=== PATIENT | female | born 1990 | race Caucasian/White ===

== ENCOUNTER → 2018-09-03 | Emergency (ER) | payer OTHER ==
[~2018-09-03] MED LIST: DICYCLOMINE HCL 10 MG CAP ONE; FAMOTIDINE 20 MG/2 ML VIAL IV ONE; NA CHLORIDE 0.9% 1,000 ML ONE; ONDANSETRON 4 MG/2 ML VIAL ONE
[2018-09-03 14:11] LABS: Absolute Lymphocytes (CBC) 1.4 K/uL (0.7-4.9); Absolute Monocytes 0.3 K/uL (0.1-1.3); Absolute Neutrophil 3.8 K/uL (1.8-8.0); Basophils % 0.5 % (0-1.3); Eosinophils % 1.6 % (0-4.4); Hematocrit 42.1 % (36.0-45.0); Lymphocytes % 25.4 % (15.3-44.8); MPV 9.5 fL (7.6-11.3); Monocytes % 5.7 % (3.3-12.3); RBC Red Blood Cell Count 4.73 M/uL (3.86-4.86)
[2018-09-03 14:35] LABS: ALT/SGPT 16 U/L (12-78); AST/SGOT 12 U/L (15-37); Albumin 4.2 g/dL (3.4-5.0); Alkaline Phosphatase 86 U/L (45-117); BUN Blood Urea Nitrogen 7 mg/dL (7-18); Bicarbonate 22 mmol/L (21-32); Bilirubin Direct 0.1 mg/dL (0-0.2); Bilirubin Total 0.5 mg/dL (0.2-1.0); Glucose Level 100 mg/dL (74-106); Lipase 98 U/L (73-393); Potassium 3.5 mmol/L (3.5-5.1); Protein, Total 8.6 g/dL (6.4-8.2); Sodium Level 141 mmol/L (136-145)
--- NOTE | 2018-09-03 14:46 | EDPHYS ---
Physician Documentation [facility] Name: Mechelle Carmichael Age: 28 yrs Sex: Female : 1990 Arrival Date: 09/03/2018 Time: 12:37 Bed 30 Private MD: None, None ED Physician Juan Villalta HPI: 09/03 14:25 This 28 yrs old Female presents to ER via Ambulatory with complaints of kb Abdominal Pain. 14:25 The patient presents with abdominal pain in the epigastric area. Onset: The kb symptoms/episode began/occurred last night, and became worse this morning. The symptoms do not radiate. Associated signs and symptoms: Pertinent positives: nausea and vomiting, Pertinent negatives: anorexia, blood in stools, chest pain, constipation, diarrhea, dysuria, fever, headache, hematuria, palpitations, shortness of breath, vaginal discharge, vomiting blood. The symptoms are described as burning, pressure. Modifying factors: The symptoms are alleviated by nothing, the symptoms are aggravated by nothing. Severity of pain: At its worst the pain was moderate in the emergency department the pain is unchanged. The patient has not experienced similar symptoms in the past. The patient has not recently seen a physician. 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 - Social history:: Smoking status: unknown. - Ebola Screening: : No symptoms or risks identified at this time. ROS: 14:25 Constitutional: Negative for fever, chills, and weight loss, Cardiovascular: Negative kb for chest pain, palpitations, and edema, Respiratory: Negative for shortness of breath, cough, wheezing, and pleuritic chest pain, Back: Negative for injury and pain, : Negative for injury, bleeding, discharge, and swelling, MS/Extremity: Negative for injury and deformity, Skin: Negative for injury, rash, and discoloration, Neuro: Negative for headache, weakness, numbness, tingling, and seizure. 14:25 Abdomen/GI: Positive for abdominal pain, nausea and vomiting, Negative for diarrhea, constipation, abdominal cramps, abdominal distension, anorexia. Exam: 14:25 Constitutional: This is a well developed, well nourished patient who is awake, alert, kb and in no acute distress. Head/Face: Normocephalic, atraumatic. Chest/axilla: Normal chest wall appearance and motion. Nontender with no deformity. No lesions are appreciated. Cardiovascular: Regular rate and rhythm with a normal S1 and S2. No gallops, murmurs, or rubs. Normal PMI, no JVD. No pulse deficits. Respiratory: Lungs have equal breath sounds bilaterally, clear to auscultation and percussion. No rales, rhonchi or wheezes noted. No increased work of breathing, no retractions or nasal flaring. Back: No spinal tenderness. No costovertebral tenderness. Full range of motion. Skin: Warm, dry with normal turgor. Normal color with no rashes, no lesions, and no evidence of cellulitis. MS/ Extremity: Pulses equal, no cyanosis. Neurovascular intact. Full, normal range of motion. Neuro: Awake and alert, GCS 15, oriented to person, place, time, and situation. Cranial nerves II-XII grossly intact. Motor strength 5/5 in all extremities. Sensory grossly intact. Cerebellar exam normal. Normal gait. 14:25 Abdomen/GI: Inspection: abdomen appears normal, Bowel sounds: normal, in all quadrants, Palpation: soft, in all quadrants, mild abdominal tenderness, in the epigastric area. Vital Signs: 12:51 BP 127 / 92; Pulse 117; Resp 18; Temp 98.3; Pulse Ox 98% ; Weight 68.04 kg; Height 5 sv ft. 2 in. (157.48 cm); Pain 4/10; 13:49 Pulse 98; Resp 20; Pulse Ox 100% ; tl3 15:26 BP 113 / 76; Pulse 76; Resp 18; Pulse Ox 100% on R/A; tl3 12:51 Body Mass Index 27.44 (68.04 kg, 157.48 cm) sv MDM: 13:06 Patient medically screened. kb 14:25 Data reviewed: vital signs, nurses notes. Data interpreted: Pulse oximetry: on room air kb is 100 %. Interpretation: normal. 14:44 Counseling: I had a detailed discussion with the patient and/or guardian regarding: the kb historical points, exam findings, and any diagnostic results supporting the discharge/admit diagnosis, lab results, the need for outpatient follow up, a family practitioner, a activated sludge attendant, to return to the emergency department if symptoms worsen or persist or if there are any questions or concerns that arise at home. 09/03 13:18 Order name: Basic Metabolic Panel; Complete Time: 14:36 kb 09/03 13:18 Order name: CBC with Diff; Complete Time: 14:34 kb 09/03 13:18 Order name: Hepatic Function; Complete Time: 14:36 kb 09/03 13:18 Order name: Lipase; Complete Time: 14:36 kb 09/03 13:30 Order name: Urine --Ancillary (enter results) bd 09/03 13:18 Order name: IV Saline Lock; Complete Time: 13:53 kb 09/03 13:18 Order name: Labs collected and sent; Complete Time: 13:53 kb Administered Medications: 13:51 Drug: Zofran 4 mg Route: IVP; Infused Over: 2 mins; Site: right antecubital; tl3 15:27 Follow up: Response: No adverse reaction; Marked relief of symptoms tl3 13:51 Drug: Bentyl 20 mg Route: PO; tl3 15:27 Follow up: Response: No adverse reaction tl3 13:52 Drug: NS 0.9% 1000 ml Route: IV; Rate: 1000 ml; Site: right antecubital; Delivery: tl3 Primary tubing; 15:27 Follow up: IV Status: Completed infusion; IV Intake: 1000ml tl3 13:52 Drug: Pepcid 20 mg Route: IVP; Infused Over: 1 mins; Site: right antecubital; tl3 15:27 Follow up: Response: No adverse reaction; Marked relief of symptoms tl3 Disposition: 09/04 07:01 Co-signature as Attending Physician, Juan Villalta MD I agree with the assessment and harsha plan of care. Disposition: 09/03/18 14:45 Discharged to Home. Impression: Upper abdominal pain, unspecified. - Condition is Stable. - Discharge Instructions: Gastroesophageal Reflux Disease, Adult, Abdominal Pain, Adult, [id number]. - Prescriptions for Zofran ODT 4 mg Oral tablet,disintegrating - place 1 tablet by TRANSLINGUAL route every 6 hours As needed; 20 tablet. Bentyl 20 mg Oral Tablet - take 1 tablet by ORAL route every 6 hours As needed; 20 tablet. - Medication Reconciliation Form, Thank You Letter form. - Follow up: Emergency Department; When: As needed; Reason: Worsening of condition. Follow up: Private Physician; When: 2 - 3 days; Reason: Recheck today's complaints, Continuance of care, Re-evaluation by your physician. Signatures: Dispatcher [employer] EDNE Kathy Dunlap, GERALD-C GERALD-Sia Vance, RN RN Juan Rodriguez MD MD cha Lowrey, Tammy, RN RN tl3 Corrections: (The following items were deleted from the chart) 09/03 15:31 14:45 09/03/2018 14:45 Discharged to Home. Impression: Upper abdominal pain, tl3 unspecified. Condition is Stable. Forms are Medication Reconciliation Form, Thank You Letter, Antibiotic Education, Prescription Opioid Use. Follow up: Emergency Department; When: As needed; Reason: Worsening of condition. Follow up: Private Physician; When: 2 - 3 days; Reason: Recheck today's complaints, Continuance of care, Re-evaluation by your physician. kb
--- NOTE | 2018-09-03 14:46 | ER ---
Nurse's Notes [facility] Name: Mechelle Carmichael Age: 28 yrs Sex: Female : 1990 Arrival Date: 09/03/2018 Time: 12:37 Bed 30 Private MD: None, None Diagnosis: Upper abdominal pain, unspecified Presentation: 09/03 12:50 Presenting complaint: Patient states: epigastric pain/pressure and vomiting since this sv morning. Denies n/d/constipation. Transition of care: patient was not received from another setting of care. Onset of symptoms was September 03, 2018. Care prior to arrival: None. 12:50 Method Of Arrival: Ambulatory sv 12:50 Acuity: ANDREW 3 sv 15:29 Risk Assessment: Do you want to hurt yourself or someone else? Patient reports no tl3 desire to harm self or others. Initial Sepsis Screen: Does the patient meet any 2 criteria? No. Patient's initial sepsis screen is negative. Does the patient have a suspected source of infection? No. Patient's initial sepsis screen is negative. Triage Assessment: 12:52 General: Appears in no apparent distress. uncomfortable, Behavior is calm, cooperative, sv appropriate for age. Pain: Complains of pain in epigastric area Pain currently is 4 out of 10 on a pain scale. Neuro: Level of Consciousness is awake, alert, obeys commands, Oriented to person, place, time, situation, Gait is steady. Respiratory: Respiratory effort is even, unlabored, Respiratory pattern is regular, symmetrical. GI: Reports vomiting. 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 - Social history:: Smoking status: unknown. - Ebola Screening: : No symptoms or risks identified at this time. Screenin:17 Abuse screen: Denies threats or abuse. Nutritional screening: No deficits noted. tl3 Tuberculosis screening: No symptoms or risk factors identified. Fall Risk None identified. Assessment: 13:17 Reassessment: pt reps x f GERD, states that it has not been acting up in quite a wile, tl3 took Mylanta last night it helped some, had large BM today, pain persists. Has vomited once. General: Appears uncomfortable, well groomed, well developed, well nourished, Behavior is calm, cooperative, appropriate for age. Pain: Complains of pain in epigastric area Quality of pain is described as pressure, stabbing, Pain began 1 day ago. Neuro: Level of Consciousness is awake, alert, obeys commands, Oriented to person, place, time, situation, Appropriate for age. Cardiovascular: Patient's skin is warm and dry. Respiratory: Airway is patent Respiratory effort is even, unlabored, Respiratory pattern is regular, symmetrical. GI: Bowel sounds present X 4 quads. Abd is soft. : Urine is clear. EENT: No signs and/or symptoms were reported regarding the EENT system. Derm: No signs and/or symptoms reported regarding the dermatologic system. Musculoskeletal: No signs and/or symptoms reported regarding the musculoskeletal system. 15:26 Reassessment: Patient appears in no apparent distress at this time. Patient and/or tl3 family updated on plan of care and expected duration. Pain level reassessed. Patient is alert, oriented x 3, equal unlabored respirations, skin warm/dry/pink. pt feeling better, no needs prior to discharge. Vital Signs: 12:51 BP 127 / 92; Pulse 117; Resp 18; Temp 98.3; Pulse Ox 98% ; Weight 68.04 kg; Height 5 sv ft. 2 in. (157.48 cm); Pain 4/10; 13:49 Pulse 98; Resp 20; Pulse Ox 100% ; tl3 15:26 BP 113 / 76; Pulse 76; Resp 18; Pulse Ox 100% on R/A; tl3 12:51 Body Mass Index 27.44 (68.04 kg, 157.48 cm) sv ED Course: 12:37 Patient arrived in ED. dl4 12:37 None, None is Private Physician. dl4 12:51 Triage completed. sv 12:53 Arm band placed on. sv 13:03 Kathy Dunlap FNP-C is PHCP. kb 13:03 Juan Villalta MD is Attending Physician. kb 13:17 Estelle Reid RN is Primary Nurse. tl3 13:17 Nurse Practitioner and/or Physician Die Forger to see patient. Kathy at bedside. tl3 13:17 Patient has correct armband on for positive identification. Bed in low position. Call tl3 light in reach. Side rails up X 1. Pulse ox on. NIBP on. Door closed. Lights dimmed. 13:17 No provider procedures requiring assistance completed. tl3 13:49 Initial lab(s) drawn, by me, sent to lab. Inserted saline lock: 20 gauge in right tl3 antecubital area, using aseptic technique. Blood collected. 13:49 Urine collected: clean catch specimen. tl3 15:26 IV discontinued, intact, bleeding controlled, No redness/swelling at site. Pressure tl3 dressing applied. Administered Medications: 13:51 Drug: Zofran 4 mg Route: IVP; Infused Over: 2 mins; Site: right antecubital; tl3 15:27 Follow up: Response: No adverse reaction; Marked relief of symptoms tl3 13:51 Drug: Bentyl 20 mg Route: PO; tl3 15:27 Follow up: Response: No adverse reaction tl3 13:52 Drug: NS 0.9% 1000 ml Route: IV; Rate: 1000 ml; Site: right antecubital; Delivery: tl3 Primary tubing; 15:27 Follow up: IV Status: Completed infusion; IV Intake: 1000ml tl3 13:52 Drug: Pepcid 20 mg Route: IVP; Infused Over: 1 mins; Site: right antecubital; tl3 15:27 Follow up: Response: No adverse reaction; Marked relief of symptoms tl3 Intake: 15:27 IV: 1000ml; Total: 1000ml. tl3 Outcome: 14:45 Discharge ordered by MD. ontiveros 15:26 Discharged to home ambulatory. tl3 15:26 Condition: stable 15:26 Discharge instructions given to patient, Instructed on discharge instructions, follow up and referral plans. medication usage, Demonstrated understanding of instructions, follow-up care, medications, Prescriptions given X 2. 15:31 Patient left the ED. tl3 Signatures: Kathy Dunlap, DIVISION ROADMASTER-C DIVISION ROADMASTER-CkSia Yen RN Estelle Valdez RN RN tl3 Patel Barroso dl4 Corrections: (The following items were deleted from the chart) 12:53 12:51 Temp 98.3F; 68.04 kg; Height 5 ft. 2 in.; BMI: 27.4; Pain 4/10; sv sv
== END ==
LOC: ER 12:33
DX: R10.13 Epigastric pain (principal); K21.9 Gastro-esophageal reflux disease without esophagitis; F41.9 Anxiety disorder, unspecified; F32.9 Major depressive disorder, single episode, unspecified; Z88.0 Allergy status to penicillin; Z88.2 Allergy status to sulfonamides; Z88.8 Allergy status to other drugs, medicaments and biological substances
CPT/HCPCS: 36415; 80048; 80076; 81025; 83690; 85025; 96361; 96374; 96375; 99284; J2405; J7030